=== PATIENT | male | born 1955 | race Caucasian/White ===

== ENCOUNTER 2017-12-04 03:41 | Day surgery (SDC) | payer OTHER ==
[~2017-12-04] VITALS: Ht 177.8 cm; Wt 105.2 kg
[2017-12-04] MEDS ORDERED: PROPOFOL EMUL(*) 10MG/ML 20 ML 20 ML ONE ×2 (11:16→13:14)
[2017-12-04 12:37] VITALS: BP 124/94
[2017-12-04] MEDS ORDERED: MIDAZOLAM 2 MG/2 ML VIAL IVP PRN (12:40)
[2017-12-04] MEDS ORDERED: NORMOSOL R SOLN(*) 1000 ML BAG 1,000 ML IV PRN (12:40)
[2017-12-04] MEDS ORDERED: LIDOCAINE/SOD BICARB 8.4% SYR ID ONE (12:40)
[2017-12-04 13:26] VITALS: BP 107/77
[2017-12-04 13:45] VITALS: BP 116/78
[2017-12-04 13:48] VITALS: BP 99/80
[2017-12-04 13:50] VITALS: BP 100/84
== END 2017-12-04 14:00 | disposition home or self-care (01) ==
LOC: OR 03:41
PROVIDERS: ATTEND Family Medicine
DX: Z12.11 Encounter for screening for malignant neoplasm of colon (principal); K57.30 Diverticulosis of large intestine without perforation or abscess without bleeding; Z86.010 Personal history of colon polyps
CPT/HCPCS: 00812; 45378; J2704